=== PATIENT | male | born 1955 | race Two or more races ===

== ENCOUNTER 2018-09-15 09:49 | Inpatient (IN) | payer MEDICAID ==
[~2018-09-15] VITALS: Ht 172.7 cm; Wt 99.3 kg
[2018-09-15] MEDS ORDERED: SODIUM CHLORIDE 0.9% 1,000 ML IV ONE (10:23)
[2018-09-15 10:54] LABS: BASOPHILS % 0.5 % (0.0-2.0); EOSINOPHILS % 3.1 % (0.0-5.0); HEMATOCRIT. 40.4 % (42.0-52.0); HEMOGLOBIN. 14.1 g/dL (14.0-18.0); MEAN CORPUSCULAR HEMOGLOBIN 29.7 pg (28.0-32.0); MEAN CORPUSCULAR VOLUME 84.8 fL (80.0-94.0); MEAN PLATELET VOLUME 8.1 fl (7.4-10.4); MONOCYTES % 6.2 % (2.0-8.0); NEUTROPHILS % 49.2 % (40.0-76.0); PLATELET 259 x1000/uL (130-400); RED BLOOD CELL COUNT 4.76 mill/uL (4.7-6.1); RED CELL DISTRIBUTION WIDTH 13.8 % (11.6-14.6)
[2018-09-15 10:59] LABS: CHLORIDE 104 mEq/L (98-107)
[2018-09-15] MEDS ORDERED: ASPIRIN 81MG TABLET PO ONE (11:00)
[2018-09-15 11:02] LABS: PARTIAL THROMBOPLASTIN TIME 28.8 sec (23.4-31.0); PROTHROMBIN TIME 10.4 sec (9.1-11.1)
[2018-09-15] MEDS ORDERED: KCL 20MEQ/100ML PREMIX 100 ML IV ONE (11:30)
[2018-09-15] MEDS ORDERED: POTASSIUM CHLORIDE 20MEQ TABLET SR PO ONE (11:30)
[2018-09-15] MEDS ORDERED: HYDRALAZINE 20MG/ML VIAL IV PRN (12:00)
[2018-09-15] MEDS ORDERED: ACETAMINOPHEN 325MG TABLET PO PRN (12:00)
[2018-09-15] MEDS ORDERED: ONDANSETRON HCL 4MG/2ML INJ IV PRN (12:00)
[2018-09-15] MEDS ORDERED: DEXTROSE 50% WATER 50ML SYRINGE IV PRN (12:00)
[2018-09-15 22:00] VITALS: BP 140/73
[2018-09-15] MEDS ORDERED: POTASSIUM CHLORIDE 20MEQ TABLET SR PO NR (23:30)
[2018-09-16 01:05] VITALS: BP 140/73
[2018-09-16 04:00] VITALS: BP 113/47
[2018-09-16] MEDS: BLOOD SUGAR DIAGNOSTIC STRIP TEST SCH ×4 (06:01→21:05)
[2018-09-16 07:04] LABS: BASOPHILS % 0.7 % (0.0-2.0); EOSINOPHILS % 3.5 % (0.0-5.0); HEMATOCRIT. 40.4 % (42.0-52.0); LYMPHOCYTES % 43.8 % (20.0-50.0); MEAN CORPUSCULAR HEMOGLOBIN 29.7 pg (28.0-32.0); MEAN CORPUSCULAR VOLUME 85.8 fL (80.0-94.0); MEAN PLATELET VOLUME 8.8 fl (7.4-10.4); MONOCYTES % 6.8 % (2.0-8.0); NEUTROPHILS % 45.2 % (40.0-76.0); PLATELET 267 x1000/uL (130-400); RED BLOOD CELL COUNT 4.71 mill/uL (4.7-6.1); RED CELL DISTRIBUTION WIDTH 13.6 % (11.6-14.6)
[2018-09-16 07:08] LABS: CHLORIDE 107 mEq/L (98-107)
[2018-09-16 07:17] LABS: CREATINE KINASE 76 IU/L (39-308)
[2018-09-16 07:19] LABS: CREATINE KINASE MB FRACTION < 1.0 ng/mL (0.5-3.6)
[2018-09-16 08:00] VITALS: BP 137/71
[2018-09-16 09:05] LABS: CLARITY URINE CLEAR (CLEAR); COLOR URINE YELLOW (YELLOW); KETONES URINE TRACE (NEGATIVE); LEUKOCYTE ESTERASE URINE NEGATIVE (NEGATIVE); NITRITE URINE NEGATIVE (NEGATIVE); OCCULT BLOOD URINE TRACE (NEGATIVE); PH URINE 6.5 (4.5-8.0); PROTEIN URINE NEGATIVE (NEGATIVE); SPECIFIC GRAVITY URINE 1.013 (1.005-1.030)
[2018-09-16] MEDS: ASPIRIN 81MG EC TABLET PO SCH (09:10)
[2018-09-16] MEDS: INSULIN LISPRO 100 UNITS/ML SUBCUT SCH ×4 (09:11→21:06)
[2018-09-16 09:29] LABS: *AMPHETAMINES SCREEN URINE NEGATIVE (NEGATIVE); *BARBITURATES SCREEN URINE NEGATIVE (NEGATIVE); *BENZODIAZEPINES SCREEN URINE NEGATIVE (NEGATIVE); *COCAINE SCREEN URINE NEGATIVE (NEGATIVE)
[2018-09-16 09:30] LABS: CANNABINOID URINE SCREEN NEGATIVE (NEGATIVE); METHADONE URINE SCREEN NEGATIVE (NEGATIVE); OPIATES URINE SCREEN NEGATIVE (NEGATIVE); PHENCYCLIDINE URINE SCREEN NEGATIVE (NEGATIVE)
[2018-09-16] MEDS ORDERED: POTASSIUM CHLORIDE 20MEQ TABLET SR PO NR (11:15)
[2018-09-16] MEDS: AMLODIPINE 2.5MG TABLET PO SCH ×2 (11:45→21:06)
[2018-09-16] MEDS ORDERED: METF-416 MT (11:54)
[2018-09-16] MEDS ORDERED: TAMS0.4C31 MT (11:54)
[2018-09-16] MEDS ORDERED: SIMV5TAB53 MT (11:58)
[2018-09-16] MEDS ORDERED: AMLO10TA80 MT (11:58)
[2018-09-16] MEDS ORDERED: DOXA4TAB3 MT (11:58)
[2018-09-16] MEDS ORDERED: ATEN100T MT (11:58)
[2018-09-16] MEDS ORDERED: ASPI-1158 MT (11:58)
[2018-09-16 12:00] VITALS: BP 132/68
[2018-09-16 16:00] VITALS: BP 137/71
[2018-09-16 20:00] VITALS: BP 150/91
[2018-09-17 00:42] VITALS: BP 135/72
[2018-09-17 04:00] VITALS: BP 122/56
[2018-09-17 07:13] LABS: BASOPHILS % 0.6 % (0.0-2.0); EOSINOPHILS % 3.7 % (0.0-5.0); HEMOGLOBIN. 13.8 g/dL (14.0-18.0); LYMPHOCYTES % 49.5 % (20.0-50.0); MEAN CORPUSCULAR HEMOGLOBIN 29.9 pg (28.0-32.0); MEAN CORPUSCULAR VOLUME 86.5 fL (80.0-94.0); MEAN PLATELET VOLUME 8.9 fl (7.4-10.4); MONOCYTES % 6.1 % (2.0-8.0); NEUTROPHILS % 40.1 % (40.0-76.0); PLATELET 270 x1000/uL (130-400); RED BLOOD CELL COUNT 4.63 mill/uL (4.7-6.1); RED CELL DISTRIBUTION WIDTH 13.4 % (11.6-14.6)
[2018-09-17 07:57] LABS: CHLORIDE 107 mEq/L (98-107)
[2018-09-17 08:00] VITALS: BP 148/70
[2018-09-17] MEDS: AMLODIPINE 2.5MG TABLET PO SCH (08:13)
[2018-09-17] MEDS: ASPIRIN 81MG EC TABLET PO SCH (08:13)
[2018-09-17] MEDS: INSULIN LISPRO 100 UNITS/ML SUBCUT SCH ×4 (08:14→20:43)
[2018-09-17] MEDS: BLOOD SUGAR DIAGNOSTIC STRIP TEST SCH ×4 (08:15→20:31)
[2018-09-17] MEDS: POTASSIUM CHLORIDE 20MEQ TABLET SR PO SCH (11:32)
[2018-09-17 12:00] VITALS: BP 130/77
[2018-09-17 16:00] VITALS: BP 150/77
[2018-09-17] MEDS ORDERED: POTASSIUM CHLORIDE 20MEQ/PACKET PO NR (17:00)
[2018-09-17 20:00] VITALS: BP 155/93
[2018-09-17] MEDS: AMLODIPINE 5MG TABLET PO SCH (20:42)
[2018-09-18] VITALS: BP 142/80
[2018-09-18 04:00] VITALS: BP 119/48
[2018-09-18] MEDS: BLOOD SUGAR DIAGNOSTIC STRIP TEST SCH ×2 (06:51→12:40)
[2018-09-18] MEDS: ASPIRIN 81MG EC TABLET PO SCH (08:21)
[2018-09-18] MEDS: AMLODIPINE 5MG TABLET PO SCH (08:21)
[2018-09-18] MEDS: POTASSIUM CHLORIDE 20MEQ TABLET SR PO SCH (08:21)
[2018-09-18] MEDS: INSULIN LISPRO 100 UNITS/ML SUBCUT SCH ×2 (08:22→14:51)
[2018-09-18 08:27] LABS: BASOPHILS % 0.7 % (0.0-2.0); EOSINOPHILS % 3.9 % (0.0-5.0); HEMATOCRIT. 43.4 % (42.0-52.0); LYMPHOCYTES % 47.9 % (20.0-50.0); MEAN CORPUSCULAR HEMOGLOBIN 29.6 pg (28.0-32.0); MEAN CORPUSCULAR VOLUME 85.8 fL (80.0-94.0); MEAN PLATELET VOLUME 8.3 fl (7.4-10.4); MONOCYTES % 5.9 % (2.0-8.0); NEUTROPHILS % 41.6 % (40.0-76.0); PLATELET 275 x1000/uL (130-400); RED BLOOD CELL COUNT 5.06 mill/uL (4.7-6.1); RED CELL DISTRIBUTION WIDTH 13.3 % (11.6-14.6)
[2018-09-18 08:55] LABS: CHLORIDE 106 mEq/L (98-107)
[2018-09-18 12:00] VITALS: BP 149/91
[2018-09-18] MEDS ORDERED: AMLO5TAB88 MT (12:39)
[2018-09-18] MEDS ORDERED: POTASSIUM CHLORIDE 20MEQ TABLET SR PO SCH (12:45)
[2018-09-18 14:57] VITALS: BP 149/91
== END 2018-09-18 15:31 | disposition home or self-care (01) | DRG 201 ==
LOC: ER 09:49 → 7WST 11:38 → EDBEDREQ 11:41 → ENRESERV 19:50
PROVIDERS: ADMIT Internal Medicine; ATTEND Internal Medicine
DX: R00.1 Bradycardia, unspecified (principal); E11.9 Type 2 diabetes mellitus without complications; E66.9 Obesity, unspecified; E78.00 Pure hypercholesterolemia, unspecified; E78.5 Hyperlipidemia, unspecified; E87.6 Hypokalemia; N40.0 Benign prostatic hyperplasia without lower urinary tract symptoms; Z79.899 Other long term (current) drug therapy; Z68.33 Body mass index [BMI] 33.0-33.9, adult; Z71.3 Dietary counseling and surveillance; I10 Essential (primary) hypertension
CPT/HCPCS: 36415; 71045; 80048; 80061; 80305; 82550; 82553; 82962; 83735; 83880; 84443; 84484; 85379; 93005; 93306; 93970; 96360; 96361; 99285; J1815; J3480; J7030; J7050